=== PATIENT | male | born 1995 | race Two or more races ===

== ENCOUNTER 2024-11-11 17:54 | Emergency (ER) | payer OTHER, SELFPAY ==
[2024-11-11 18:03] VITALS: BP 150/90; PULSE 71; RESP 18; TEMP 36.6; O2SAT 100
[2024-11-11 18:04] VITALS: BMI 38.7
--- NOTE | 2024-11-11 18:05 | PD.EDSUICD ---
ED Psych RME/HPI General Chief Complaint: Suicidal Stated Complaint: MENTAL EVAL Time Seen by Provider: 11/11/24 18:23 Arrival date/time: 11/11/24 17:54 RME / HPI RME / HPI Narrative: This section includes all my notes and documentations, including HPI, PE, and ED course. Marquez Caba MD HPI: 28yo male with a history of schizophrenia, bipolar disorder, and anxiety here with suicidal ideation. Patient states he was getting kicked out of his mom's house so he cut his left forearm. Patient denies any HI or hallucinations. No other complaints reported. ROS: All negative except as documented in HPI. Physical Exam: General: Alert and oriented. Eyes: Conjunctivae and lids clear. EOMI. PERRL. ENT: No nasal congestion. Neck: Supple. Heart: RRR. Lungs: No respiratory distress. Good air movement. No rhonchi, wheezing, rales. Abdomen: Soft and nontender. Skin: Warm and dry. Within the volar aspect of the left forearm, there are many horizontal linear abrasions. Neuro: Alert and oriented X 3. Cranial Nerves II-XII grossly intact. No peripheral motor deficits. I reviewed all diagnostic test results. Blood tests are unremarkable. UDS is positive for marijuana. Treatment included wound care, Tdap, topical ABX, and Keflex. Patient is medically cleared for crisis evaluation. At 6 AM on 11/12/2024, the care of the patient was transferred to Dr. LUKE. Marquez Caba MD Related Data Allergies Allergy/AdvReac Type Severity Reaction Status Date / Time No Known Allergies Allergy Verified 11/11/24 18:53 Review of Systems Review of Systems Systems Reviewed: All systems reviewed, normal except as documented Past Medical History Past Medical History NEUROLOGIC: Positive Seizures CARDIAC: Negative Congestive Heart Failure RESPIRATORY: Negative Chronic Obstructive Pulmonary Disease (COPD) GENITOURINARY: Negative Renal Disease ENDOCRINE: Negative Diabetes Mellitus Type 1 or Diabetes Mellitus Type 2 PSYCHO/SOCIAL: Positive Psychiatric Problems, Schizophrenia, Depression and Anxiety Social History SMOKING STATUS: Never smoker ED Exam Narrative Physical exam: As noted in HPI. Course Quality Measures none Orders Category Date Time Status 1798 Psychiatric Hold NOW Care 11/11/24 18:45 Ordered Wound Care [Wound Care] NOW Care 11/11/24 18:45 Active Referral Psych Eval Stat Cons 11/11/24 19:51 Active Acetaminophen Stat Lab 11/11/24 18:54 Completed Alcohol, Blood Medical Stat Lab 11/11/24 18:54 Completed CBC Stat Lab 11/11/24 18:54 Completed CMP [Comprehensive Metabolic Panel] Stat Lab 11/11/24 18:54 Completed Drug Screen,Urine Stat Lab 11/11/24 18:55 Completed Free T4 (Free Thyroxine) Stat Lab 11/11/24 18:54 Completed Magnesium Stat Lab 11/11/24 18:54 Completed Salicylate Stat Lab 11/11/24 18:54 Completed TSH [Thyroid Stimulating Hormone] Stat Lab 11/11/24 18:54 Completed Bacitracin Oint pkt Med 11/11/24 18:45 Discontinued 1 gm TOP X1 ONE TET,DIP/PERT AC (Adult)-Tdap [Boostrix Adult (Tdap) Med 11/11/24 18:45 Discontinued Vacc] 0.5 ml IMI .ONCE ONE cephALEXin [Keflex] Med 11/11/24 18:45 Discontinued 1,000 mg PO X1 ONE Vital Signs Vital signs: Vital Signs Temperature 97.9 F 11/11/24 18:03 Pulse Rate 71 11/11/24 18:03 Respiratory Rate 18 11/11/24 18:03 Blood Pressure 150/90 H 11/11/24 18:03 Pulse Oximetry (%) 100 11/11/24 18:03 Oxygen Delivery Method Room Air 11/11/24 18:03 Psych MDM Narrative MDM Narrative:: Scribe Attestation: 11/11/24 Nayeli Gatica am scribing for and in the presence of Dr. Caba. 28yo male with a history of schizophrenia, bipolar disorder presents to the ED for a mental evaluation. Patient states he was getting kicked out of his mom's house and endorses he wanted to harm himself, so he cut himself to his left forearm. Patient denies any HI or hallucinations. No other complaints reported. Patient data External records reviewed:: [facility] [place] previous records (Per chart review, patient was seen here on 12/03/23 for chronic schizophrenia.) Clinical information provided by:: patient Social determinants that could affect healthcare access:: mental health Patient has the following chronic illnesses:: schizophrenia, bipolar disorder How is presenting disease/condition affected by chronic disease/condition?: caused by Evaluation data The following diagnostics were reviewed and interpreted by me:: lab results Lab and/or radiology exams considered but not ordered:: none Interpretation Summary: I reviewed all diagnostic test results. Blood tests are unremarkable. UDS is positive for marijuana. Medications / Prescriptions Medications or Prescriptions considered but not ordered:: none Medication administrations:: Medication Administration History Discontinued Medications Bacitracin (Bacitracin Oint 1 Gm Packet) 1 gm TOP X1 ONE Stop: 11/11/24 18:46 Last Admin: 11/11/24 19:29 Dose: 1 gm Documented By: CCT Cephalexin HCl (Cephalexin 250 Mg Capsule) 1,000 mg PO X1 ONE Stop: 11/11/24 18:46 Last Admin: 11/11/24 19:28 Dose: 1,000 mg Documented By: CCT Diphtheria/Tetanus/Acell Pertussis (Diphth,Pertuss(Acell),Tet Vac 0.5 Ml Syr- Adult) 0.5 ml IMi .ONCE ONE Stop: 11/11/24 18:46 Last Admin: 11/11/24 19:26 Dose: 0.5 ml Documented By: CCT Bacitracin, Cephelexin, tDap Consultations Consultation(s) initiated? (list below): No Diagnosis Psych Differential Diagnosis: acute psychosis, chronic schizophrenia, suicidal ideation, bipolar disorder, depression, drug-induced psychotic disorder and acute anxiety Most likely diagnosis given after review of the tests above:: Suicidal ideation with left forearm abrasions. Admission Indicated Admission indicated?: not indicated Explain why admission is indicated or not indicated:: No psychiatric service available here. Admission Request Was there a request for admission?: No Disposition Plan Disposition Plan: other (specify) (Care of the patient was transferred to Dr. LKUE.) Discharge Plan Prescriptions/Referrals Referrals: No Primary/Family,Physician [Primary Care Provider] - In 1 week Problem List Clinical Impression: Suicidal ideation, Abrasion of left forearm Patient/Caregiver Discharge Instructions Print Language: Lao
--- NOTE | 2024-11-11 18:29 | PC.NURSE ---
Patient brought in by [employer] on a 5150 hold. Patient has superficial lacerations to L FA done by self. Patient states he was arguing with his mom, and got kicked out of home. Patient afterwards cut arm with SI intentions. POC updated sitter at bedside.
--- NOTE | 2024-11-11 18:30 | PC.CC ---
Pt is a 28 yo male who was BIB [employer] on a 5150 Hold DTS/DTO. Per LE, pt was threatening to harm his mother and had several lacerations on his on the inside of his left forearm. Per the Hold, pt was erratic and is suicidal. Per the Hold, pt is not medication compliant with his mental health issues. ASW contacted Officer Isaac who reported that the pt has significant h/o schizophrenia, bipolar disorder. Per Officer Sumeet, Patient states he was getting kicked out of his mom's house and endorses he wanted to harm himself, so he cut himself to his left forearm. Per medical provider, Patient denies any HI or hallucinations. No other complaints reported. Pt is pending medical clearance and eval.
[2024-11-11 19:11] LABS: Basophils # (Auto) 0.1 Thou/mm3 (0.0-0.2); Basophils % (Auto) 1 % (0-2.5); Eosinophils # (Auto) 0.2 Thou/mm3 (0.0-0.5); Eosinophils % (Auto) 2 % (0-10); Hematocrit 37.6 % (41.0-53.0); Hemoglobin 11.5 g/dL (13.5-16.0); Immature Granulocytes % (Auto) 0 % (0-0); Immature Granulocytes Auto 0.04 Thou/mm3 (0.00-0.00); Lymphocytes # (Auto) 2.7 Thou/mm3 (1.0-4.8); Lymphocytes % (Auto) 26 % (10-50); Mean Corpuscular HGB Conc 30.6 g/dl (31.0-37.0); Mean Corpuscular Hemoglobin 22.9 pg (25.0-35.0); Mean Corpuscular Volume 75 fL (80-100); Monocytes # (Auto) 0.8 Thou/mm3 (0.0-0.8); Monocytes % (Auto) 8 % (0-12); Neutrophils # (Auto) 6.5 Thou/mm3 (1.8-7.7); Neutrophils % (Auto) 63 % (37-80); Nucleated Red Blood Cell % 0 /100 WBC (0); Platelet Count 220 Thou/mm3 (140-440); RDW Standard Deviation 49.1 fL (35.1-43.9); Red Blood Count 5.03 Miln/mm3 (4.50-5.90); White Blood Count 10.3 Thou/mm3 (3.8-10.6)
[2024-11-11 19:23] LABS: Amphetamine/Methamp Scrn,U Negative (Negative); Barbiturate Screen,Urine Negative (Negative); Benzodiazepines Screen,Urine Negative (Negative); Benzoylecgonine Screen, Ur Negative (Negative); Fentanyl Screen,Urine Negative (Negative); Opiate Screen,Urine Negative (Negative); THC Screen,Urine Positive (Negative)
[2024-11-11 19:25] VITALS: BP 144/89; PULSE 60; RESP 17; TEMP 36.6; O2SAT 98
[2024-11-11] MEDS: DIPHTH,PERTUSS(ACELL),TET VAC 0.5 ML SYR- ADULT IMi (19:26)
[2024-11-11] MEDS: cephALEXin 250 MG CAPSULE 1000 MG PO (19:28)
[2024-11-11] MEDS: BACITRACIN OINT 1 GM PACKET TOP (19:29)
--- NOTE | 2024-11-11 19:30 | PC.NURSE ---
At this time, pt is awake/alert/oriented x3. Respirations are even and unlabored. No s/s of acute distress noted. Pt is cooperative. Pt states he is still having thoughts of harming himself. All harmful objects removed from room. 1:1 sitter at bedside. Discussed plan of care with pt, pt verbalized understanding.
[2024-11-11 19:37] LABS: Acetaminophen < 2.0 mcg/mL (10.0-20.0); Alanine Aminotransferase 89 U/L (10-49); Albumin, Serum 4.6 gm/dL (3.5-5.0); Albumin/Globulin Ratio 1.7 (1.2-2.2); Alcohol, Blood Medical < 3.0 mg/dL (0-10.0); Alkaline Phosphatase 103 U/L (46-116); Anion Gap 6 (7-16); Aspartate Amino Transferase 116 U/L (0-34); BUN/Creatinine Ratio 8 Ratio (12-20); Bilirubin,Total 0.5 mg/dL (0.3-1.2); Blood Urea Nitrogen 8 mg/dL (9-23); Calcium 9.9 mg/dL (8.3-10.6); Calcium (Corrected) 9.9 mg/dL (8.5-10.1); Carbon Dioxide 26.6 mMol/L (20.0-31.0); Chloride 102 mMol/L (98-107); Estimated Creatinine Clearance 126.1 mL/min (>60); Globulin 2.7 gm/dL (2.3-3.5); Glucose 105 mg/dL (74-106); Osmolality,Calculated 268 (275-295); Potassium 4.4 mMol/L (3.4-5.1); Salicylate < 3.0 mg/dL; Sodium 135 mMol/L (136-145); Total Protein 7.3 gm/dL (5.7-8.2); eGFR > 60 See Note
[2024-11-11 19:39] LABS: Free T4 (Free Thyroxine) 1.06 ng/dL (0.89-1.76); Thyroid Stimulating Hormone 1.73 uIU/mL (0.55-4.78)
--- NOTE | 2024-11-12 06:00 | PC.NURSE ---
Pt awake, alert/oriented x3. Pt is out of bed to use restroom. Pt is cooperative. No s/s of acute distress noted. Plan of care ongoing.
[2024-11-12 06:11] VITALS: BP 153/87; PULSE 72; RESP 18; TEMP 36.6; O2SAT 97
--- NOTE | 2024-11-12 06:15 | PD.EDADDENDU ---
Emergency Room Addendum Addendum Narrative: 0600: Care assumed from Dr. Caba, the previous shift emergency physician. Past medical, surgical, social and family history reviewed. Vitals and home medications reviewed. I will assume the care of the patient at this time, pending mental health evaluation and final disposition. Patient was already medically cleared. Please refer to the emergency department record for history and examination from initial visit.? The patient was placed in ED observation care at 11/12/2024 at 0600 hours. The patient was placed in ED observation care pending mental health evaluation. Then, [facility] placed her on psychiatric hold and now on observation care because of undifferentiated decompensated behavioral health evaluation, no behavioral health bed available. The patients past medical history, social history, and family history were reviewed. The plan of care will include serial examinations. While in ED observation the patient will have access to water, food, and personal hygiene. If the patient takes home medication(s), they will be continued in ED observation. Physical exam by me shows patient under no acute distress at this time. 0857: [facility] placed the patient on a psychiatric hold, pending placement. 1032: Patient has been accepted to [facility]. ETA is 1220 hours. 1205: EMS here to pick the patient and transport to [facility]. ED observation care ended at 11/12/2024 at 1205 hours. Diagnoses: -Suicidal ideation -Abrasion of left forearm
[2024-11-12 08:44] VITALS: BP 146/82; PULSE 80; RESP 18; TEMP 36.8; O2SAT 97
--- NOTE | 2024-11-12 08:58 | PC.CC ---
Addendum entered by Brit Chicas 11/12/24 10:23: [facility] accepted pt at 0[address]. Accepting Dr. Bolivar, pt will go to [address], [address] A-Bed. Intake Lyn Jones provided the acceptance. Nurse to Nurse [phone]. ASW contacted [facility] and p/u ETA will be at 1220. Addendum entered by Brit Chicas 11/12/24 09:25: ASW submitted packet on Z[facility] to [facility] facilities. Original Note: ASW Melchor Chicas completed a face to face mental health assessment at bedside ER #[id number]. ASW introduced self, role, and reason for assessment. ASW disclosed limits of confidentiality as well. Patient appeared alert and oriented to self, place, and situation. Patient was cooperative; his mood appeared depressed; her behavior appeared emotional. Pt stated that for the past few days, he has been responding to internal stimuli and hearing commanding voices to harm himself. Pt admitted to self harm and has superfical cuts on his left forearm, in which he used whatever he saw to cut himself. Pt stated he knows he is off lately and states he feels that the medications he is on is not working for him anymore. However, per the hold, pt is not medication compliant. Pt reports that his mother, who he lives with, is not emotionally supportive and passes judgment on him when he is in his manic episode and when the hallucinations are active. Pt admits to A/VH and states that they are uncontrollable. Pt reports the voices are commanding and are demeaning and tell him he is not good enough to live. Pt admits to active SI and states that if he were to d/c home he does not feel safe with himself and will end up . After speaking to collateral, she is not willing to safety plan with pt as she feels he is dangerous at this time. No safety plan can be created due to the current situation and disclosures. ASW contacted [facility], Director Yesenia Adams and it was determiend that the pt will remain on a hold and ASW will search for placement. ASW informed ER provider and RN assigned to the pt that ASW will search for LPS placement.
--- NOTE | 2024-11-12 11:32 | PC.NURSE ---
Report called to [facility] for nurse to nurse report. I spoke with Kezia NAVARRO and gave her a report of patient's history and current status. Patient is aware of transfer to placement which he is very happy that he will not be homeless.
--- NOTE | 2024-11-12 12:00 | PC.NURSE ---
Handoff report given to Chel NAVARRO
[2024-11-12 12:04] VITALS: BP 158/83; PULSE 71; RESP 18; TEMP 36.8; O2SAT 98
== END 2024-11-12 13:00 ==
LOC: SERX 19:38
PROVIDERS: Emergency Provider Emergency Medicine
DX: S50.812A Abrasion of left forearm, initial encounter (principal); F20.9 Schizophrenia, unspecified; F31.9 Bipolar disorder, unspecified; X78.9XXA Intentional self-harm by unspecified sharp object, initial encounter; Z75.1 Person awaiting admission to adequate facility elsewhere; Z23 Encounter for immunization
CPT/HCPCS: 36415; 80053; 80307; 80320; 80329; 83735; 84439; 84443; 85025; 90471; 90715; 90839; 96127; 99285; A9270; G0480